=== PATIENT | male | born 1985 | race Caucasian/White ===

== ENCOUNTER 2018-01-18 09:07 | Day surgery (SDC) | payer OTHER, MEDICAID, SELFPAY ==
--- NOTE | 2018-01-18 | PATH_ITS ---
[facility] Accession Number: [id number] . 01 Material submitted: . PART A: GASTRITIS PART B: DUODENAL BIOPSY . 01 Clinical history: . RULE OUT H.PYLORI . 02 Diagnosis: A. Stomach, Biopsies: Helicobacter pyori gastritis confirmed by immunohistochemistry. Negative for intestinal metaplasia. Negative for dysplasia and malignancy. . B. Duodenum, Biopsies: Duodenal mucosa with no diagnostic abnormality. Negative for active inflammation, features of sprue, dysplasia, or malignancy. . BFI/01/20/2018 . 02 Electronically signed: . Tawanna Locke MD, Pathologist NPI- [id number] . 01 Gross description: . Received two formalin-filled containers, both labeled with the patient's name: . A. In a container labeled gastritis, the specimen consists of a 0.3 cm portion of tissue, entirely submitted in cassette A. B. In a container labeled duodenal, are two 0.1-0.2 cm portions of tissue, entirely submitted in cassette B. (DC:[id number]) /FRR . 02 Microscopic: . A. An immunohistochemical stain was performed to evaluate for Helicobacter organisms and is positive. The control stain showed appropriate reactivity. . * This test was developed and its performance characteristics determined by [facility]. It has not been cleared or approved by the U.S. Food and Drug Administration. The FDA has determined that such clearance or approval is not necessary. This test is used for clinical purposes. It should not be regarded as investigational or for research. . 02 Pathologist provided ICD-10: R10.9, B96.81 . 02 CPT . 492937, 673578, W42342 Performed at: 01 [facility] [address] [place] [address] [id number] MD Himanshu Rivera MD Phone: [phone] Performed at: [address] [id number] MD Jean Paul Lang MD Phone: [phone]
[2018-01-18 09:49] VITALS: BP 128/78; PULSE 59; RESP 16; TEMP 36.6; O2SAT 99; BMI 20.5
--- NOTE | 2018-01-18 10:13 | PM.HP.1 ---
History of Present Illness Date Patient Seen: 01/18/18 Time Patient Seen: 10:13 Chief complaint: EGD w/biopsy [id number] Patient History Family & Social History Social History: household members spouse Meds Allergies Allergy/AdvReac Type Severity Reaction Status Date / Time No Known Drug Allergies Allergy Verified 01/18/18 10:01 Exam Vital Signs (past 8 hours): - 01/18/18 09:49 Temperature 97.8 F Pulse Rate 59 L Respiratory Rate 16 Blood Pressure 128/78 H Pulse Oximetry 99 Oxygen Delivery Method Room Air Narrative Exam Narrative: Chest clear to auscultation percussion Cardiac exam reveals no S3 or murmur Oropharynx free of lesions Assessment & Plan Plan: Assessment/Plan Narrative: Severe nausea and vomiting and abdominal pain. Rule out peptic disease. Rule out GERD
[2018-01-18] MEDS: fentaNYL 250 MCG/5 ML INJ IV (10:21)
[2018-01-18] MEDS: MIDAZOLAM 5 MG/5 ML VIAL IV (10:21)
--- NOTE | 2018-01-18 10:32 | PM.OP.ENDO ---
Operative Date/Time/Diagnoses Date of procedure: 01/18/18 Time of procedure: 10:32 Pre-op diagnosis: See indication Post-op diagnosis: same (See finding) Procedure & Clinicians Study performed: EGD with biopsy Same procedure as scheduled: Yes Indications: Severe nausea vomiting abdominal pain Surgeon: Garett Ruth Procedure Notes Procedure in detail: After informed consent was obtained the patient was placed in the left lateral decubitus position. The video upper scope was placed into the oropharynx and with the patient's health called into the esophagus. The stomach, thus esophagus, and duodenum were carefully examined. On withdrawal retroflex view of the GE junction was performed. The scope was removed the patient tolerated procedure well Blood loss none Complications none Sedation Versed 8 mg fentanyl 200 mcg IV titration Total sedation time 14 min Findings 1. Distal esophagus showing mild erythematous and early erosive changes consistent with vomiting. No evidence of eosinophilic esophagitis 2. Patchy gastric erythema in the antrum. Biopsies taken to rule out Helicobacter 3. Some retained food in the stomach possibly consistent with mild gastric emptying delay 4. Normal duodenal bulb and sweep. Biopsies taken to rule out celiac disease Patient will still be need to be set up for colonoscopy with biopsy. Will await other studies as well and his return visit to the office.
[2018-01-18 10:39] VITALS: BP 96/58; PULSE 62; RESP 14; TEMP 36.2; O2SAT 92
[2018-01-18 10:42] VITALS: BP 97/57; PULSE 60; RESP 16; TEMP 36.2; O2SAT 93
[2018-01-18 10:47] VITALS: BP 107/70; PULSE 73; RESP 16; TEMP 36.1; O2SAT 98
[2018-01-18 10:50] VITALS: BP 112/76; PULSE 80; RESP 16; TEMP 36.4; O2SAT 98
== END 2018-01-18 11:10 | disposition home or self-care (01) ==
PROVIDERS: Visit Provider Internal Medicine Gastroenterology
PROC: 0DJ08ZZ Inspection of Upper Intestinal Tract, Via Natural or Artificial Opening Endoscopic (ICD-10-PCS; CPT 43235; principal; 2018-01-18 10:00)
DX: K29.70 Gastritis, unspecified, without bleeding (principal); B96.81 Helicobacter pylori [H. pylori] as the cause of diseases classified elsewhere
CPT/HCPCS: 43239; 88305; 88342; J2250; J3010

== ENCOUNTER 2018-02-08 13:06 | Day surgery (SDC) | payer OTHER, MEDICAID, SELFPAY ==
--- NOTE | 2018-02-08 | PATH_ITS ---
[facility] Accession Number: [id number] . 01 Material submitted: . PART A: TERMINAL ILEUM BIOPSY PART B: ASCENDING COLON POLYP PART C: RANDOM COLON BIOPSY . 02 Diagnosis: A. Terminal Ileum, Biopsy: Ileal mucosa with no diagnotic abnormality. Negative for active inflammation, granulomata, dysplasia or malignancy. . B. Ascending Colon Polyp: Tubular adenoma. . C. Random Colon, Biopsy: Colonic mucosa with no diagnostic abnormality. Negative for active or microscopic colitis. Negative for granulomata, dysplasia or malignancy. [facility]/02/09/2018 . 02 Electronically signed: . Elio King MD, PhD, Pathologist NPI- [id number] . 01 Gross description: . Received three formalin-filled containers, each labeled with the patient's name: . A. In a container labeled TI, are two 0.2-0.3 cm portions of tissue, entirely submitted in cassette A. B. In a container labeled ascending col. polyp, is one fragment of tissue which measures 0.3 cm. The specimen is entirely submitted in cassette B. C. In a container labeled random colon, are four less than 0.1 cm to 0.3 cm portions of tissue, entirely submitted in cassette C. (DC:[id number]) /FRR . 02 Pathologist provided ICD-10: D12.2, R19.4 . 02 CPT . 579146, 099710, 330823 Performed at: 01 [facility] [address] [place] [id number] MD Himanshu Rivera MD Phone: [phone] Performed at: 02 [facility] [address] [place] [id number] MD Jean Paul Lang MD Phone: [phone]
[2018-02-08 13:21] VITALS: BMI 19.9
[2018-02-08 13:35] VITALS: BP 125/72; PULSE 68; RESP 16; TEMP 37; O2SAT 100
[2018-02-08] MEDS: SODIUM CHLORIDE 0.9% 1,000 ML 200 ML IV (13:48)
--- NOTE | 2018-02-08 14:02 | PM.PREOP ---
Pre-operative Note Interval Note Pre-op Check: Yes History & Physical Reviewed by Physician and Yes Exam Performed Changes: Yes H&P completed within 30 days and has changed as indicated here:: Biopsies from upper endoscopy showed Helicobacter pylori. Unfortunately, only taken part of prescriptions so far ASA Class (for procedural sedation): II
--- NOTE | 2018-02-08 14:08 | PM.OP.ENDO ---
Operative Date/Time/Diagnoses Date of procedure: 02/08/18 Time of procedure: 14:08 Pre-op diagnosis: See indications Post-op diagnosis: same Procedure & Clinicians Study performed: Colonoscopy with biopsy Same procedure as scheduled: Yes Indications: Diarrhea and abdominal pain Surgeon: Garett Ruth Procedure Notes Procedure in detail: After informed consent was obtained patient was placed in the left lateral decubitus position. The video colonoscope was introduced the rectum slowly advanced to the cecum. The IC valve was identified and intubated. The scope was passed slowly 5 cm up the terminal ileum. On slow withdrawal the mucosa was carefully examined. Scope was removed. Patient tolerated procedure well. Blood loss none Complications none Sedation Fentanyl 100 mcg Versed 10 mg IV titration Total sedation time Findings 1. Normal terminal ileum. Biopsies taken. 2. Normal colonoscopy to cecum with normal mucosa. Random biopsies taken. 3. 4 mm polyp in the ascending colon cold biopsy removed completely. Patient will follow up with the biopsy results and make an appointment to see Dr. Valentin or myself in [place]. In the meantime, he began his treatment for his Helicobacter positive gastric biopsies last week but had to stop them over the weekend when he presented to the emergency room for more nausea and vomiting. I clarified is need to take amoxicillin and clarithromycin for a full 14 days along with omeprazole b.i.d. (or pantoprazole b.i.d.) for 14 days. To this and I have sent an another refill on his amoxicillin and clarithromycin to make sure he has enough to complete a full 14 days.
[2018-02-08] MEDS: MIDAZOLAM 5 MG/5 ML VIAL IV (14:19)
[2018-02-08] MEDS: fentaNYL 250 MCG/5 ML INJ IV (14:20)
[2018-02-08 14:34] VITALS: BP 117/77; PULSE 62; RESP 13; TEMP 36.1; O2SAT 98
[2018-02-08 14:39] VITALS: BP 109/60; PULSE 67; RESP 11; O2SAT 99
[2018-02-08 14:44] VITALS: BP 109/70; PULSE 64; RESP 10; TEMP 36.1; O2SAT 99
[2018-02-08 14:57] VITALS: BP 120/82; PULSE 60; RESP 12; TEMP 36.6; O2SAT 100
== END 2018-02-08 15:17 | disposition home or self-care (01) ==
PROVIDERS: Visit Provider Internal Medicine Gastroenterology
PROC: 0DJD8ZZ Inspection of Lower Intestinal Tract, Via Natural or Artificial Opening Endoscopic (ICD-10-PCS; CPT 45378; principal; 2018-02-08 14:00)
DX: D12.2 Benign neoplasm of ascending colon (principal); A04.8 Other specified bacterial intestinal infections; R11.2 Nausea with vomiting, unspecified; R19.7 Diarrhea, unspecified; F17.210 Nicotine dependence, cigarettes, uncomplicated
CPT/HCPCS: 45380; 88305; J2250; J3010

== ENCOUNTER 2018-10-11 22:11 | Emergency (ER) | payer OTHER, MEDICAID, SELFPAY ==
[2018-10-11 22:28] VITALS: BP 138/97; PULSE 120; RESP 16; TEMP 37.3; O2SAT 98; BMI 21.5
[2018-10-11 23:29] LABS: Blood Urea Nitrogen 58 mg/dL (9-20); Calcium 11.5 mg/dL (8.4-10.2); Carbon Dioxide 23 mmol/L (22-32); Chloride 97 mmol/L (98-107); Estimated Glomerular Filt Rate 38.4 mL/min (>60); Glucose 139 mg/dL (70-100); HEMOLYSIS 21 (0-50); Potassium 4.5 mmol/L (3.4-5.1); Sodium 136 mmol/L (137-145)
[2018-10-11] MEDS: SODIUM CHLORIDE 0.9% 1,000 ML 1000 ML IV (23:30)
--- NOTE | 2018-10-11 23:34 | ED_ITS ---
HPI - Back Pain/Injury General Chief Complaint: Back Pain/Injury Stated Complaint: Dehydrated X4 Days, Back Pain Time Seen by Provider: 10/11/18 23:34 Source: patient Mode of arrival: ambulatory Limitations: no limitations History of Present Illness HPI Narrative: 33-year-old male here for evaluation of what he thinks is dehydration. He states that on Tuesday of this week he had a couple episodes of vomiting and a couple episodes of diarrhea. Has not had anything since then. He states he thinks he has been drinking however he states that he mostly drinks soda not water. He does work outside. States he has had a history of H pylori in the past and 1 of the reasons why he is not drinking more fluids because he feels ?bloated? when he drinks. States that he has had very little urine output over the past couple days. No bowel changes. Related Data Home Medications Medication Instructions Recorded Confirmed amoxicillin 1,000 mg PO BID 02/08/18 02/08/18 clarithromycin 1 tab PO BID 02/08/18 02/08/18 famotidine 20 mg PO DAILY 02/08/18 02/08/18 omeprazole 20 mg PO DAILY 02/08/18 02/08/18 ondansetron 4 mg PO Q6H PRN 02/08/18 02/08/18 sucralfate 1 g PO QID 02/08/18 02/08/18 Allergies Allergy/AdvReac Type Severity Reaction Status Date / Time No Known Drug Allergies Allergy Verified 10/11/18 22:28 Review of Systems Constitutional Denies fever(s) and Denies headache(s) ENT Ears, Nose, Mouth, and Throat: Denies headache(s) Cardiovascular Denies chest pain and Denies dyspnea Respiratory Denies dyspnea Gastrointestinal Gastrointestinal: Denies abdominal pain and Reports bloating Genitourinary Comments: Little urine output Integumentary/Breasts Denies rash Neurologic Denies headache(s) Hematologic/Lymphatic Denies easy bleeding and Denies easy bruising [facility] Medical History H. pylori infection (Acute) Social History household members: spouse Smoking Status: Current every day smoker Social History household members: spouse Smoking Status: Current every day smoker Exam Initial Vital Signs Initial Vital Signs: Vital Signs Temperature 99.1 F 10/11/18 22:28 Pulse Rate 120 H 10/11/18 22:28 Respiratory Rate 16 10/11/18 22:28 Blood Pressure 138/97 H 10/11/18 22:28 Pulse Oximetry 98 10/11/18 22:28 Const General: cooperative, well developed, well groomed and No acute distress Orientation: alert, awake and oriented x3 HENMT Head: normal to inspection and normocephalic Resp Effort & Inspection: normal respiratory effort Auscultation: clear to auscultation bilaterally Cardio Rate: tachycardic Rhythm: regular rhythm Pulses: radial pulses present GI Inspection: non-distended Palpation: soft, No firm and No tender Skin Lesions: no lesions Rashes: no rashes Other: Dry skin Neuro General: alert, awake and oriented x3 Extrem General: normal to inspection and capillary refill normal Psych Appearance: grossly normal and well kempt Course Orders Ordered: ED Orders 10/11/18 22:59 Basic Metabolic Panel Stat Complete Blood Count AUTO DIFF Stat 10/12/18 02:19 Urine Microscopic Stat 10/12/18 02:53 Basic Metabolic Panel Stat Complete Blood Count AUTO DIFF Stat Discontinued Medications Al Hydrox/Mg Hydrox/Simethicone 20 ml/ Lidocaine HCl 15 ml 0 ml PO NOW ONE Stop: 10/12/18 02:04 Last Admin: 10/12/18 02:03 Dose: 45 ml Sodium Chloride (Normal Saline 0.9%) 1,000 mls @ 1,000 mls/hr IV BOLUS ONE Stop: 10/12/18 00:16 Last Infusion: 10/12/18 00:27 Dose: 0 mls/hr Admin: 10/11/18 23:30 Dose: 1,000 mls/hr Sodium Chloride (Normal Saline 0.9%) 1,000 mls @ 1,000 mls/hr IV BOLUS ONE Stop: 10/12/18 00:55 Last Infusion: 10/12/18 01:20 Dose: 0 mls/hr Admin: 10/12/18 00:27 Dose: 1,000 mls/hr Lactated Ringer's (Lactated Ringers) 1,000 mls @ 1,000 mls/hr IV BOLUS ONE Stop: 10/12/18 02:55 Last Infusion: 10/12/18 03:01 Dose: 0 mls/hr Admin: 10/12/18 01:59 Dose: 1,000 mls/hr Vital Signs - 8 hr 10/11/18 22:28 10/12/18 00:28 10/12/18 02:12 Temperature 99.1 F Pulse Rate 120 H 70 80 Respiratory Rate 16 16 16 Blood Pressure 138/97 H Blood Pressure [Right Arm] 130/88 148/83 H Pulse Oximetry 98 99 98 MDM - Back Pain/Injury Lab Data Attestation: I reviewed the patient's lab results. Result diagrams: 10/12/18 02:53 10/12/18 02:53 Lab Results 10/11/18 10/11/18 10/12/18 Range/Units 22:59 22:59 02:19 WBC 28.5 H (4.5-11.0) X10^3/uL RBC 6.74 H (4.5-5.9) X10^6/uL Hgb 20.1 H (13.5-17.5) g/dL Hct 59.5 H (41-53) % MCV 88.3 (80-100) fL MCH 29.8 (26-34) PG MCHC 33.8 (30-36) % RDW 12.7 (11.6-14.8) % Plt Count 319 (150-400) X10^3/uL Neut % (Auto) 83.7 H (50-75) % Lymph % (Auto) 8.4 L (25-40) % Perkins % (Auto) 7.6 (3-14) % Eos % (Auto) 0.1 L (2-4) % Baso % (Auto) 0.2 (0-2) % Neut # (Auto) 95438 H (9256-7172) /uL Lymph # (Auto) 2400 (0628-1317) /uL Perkins # (Auto) 2200 H (0-900) /uL Eos # (Auto) 0 (0-450) /uL Baso # (Auto) 100 (0-100) /uL Sodium 136 L (137-145) mmol/L Potassium 4.5 (3.4-5.1) mmol/L Chloride 97 L (98-107) mmol/L Carbon Dioxide 23 (22-32) mmol/L BUN 58 H (9-20) mg/dL Creatinine 2.00 H (0.66-1.25) mg/dL Estimated GFR 38.4 L (>60) mL/min BUN/Creatinine Ratio 29.0 H (6-22) Glucose 139 H (70-100) mg/dL Calcium 11.5 H (8.4-10.2) mg/dL Urine RBC None seen (0-5/HPF) Urine WBC None seen (0-5/HPF) Urine Bacteria None seen (None) Ur Culture Indicated? Cult not indicated Micro UA Comment Microscopic normal 10/12/18 10/12/18 Range/Units 02:53 02:53 WBC 20.4 H (4.5-11.0) X10^3/uL RBC 5.33 (4.5-5.9) X10^6/uL Hgb 16.0 (13.5-17.5) g/dL Hct 47.0 (41-53) % MCV 88.2 (80-100) fL MCH 30.0 (26-34) PG MCHC 34.0 (30-36) % RDW 12.4 (11.6-14.8) % Plt Count 222 (150-400) X10^3/uL Neut % (Auto) 79.4 H (50-75) % Lymph % (Auto) 12.4 L (25-40) % Perkins % (Auto) 7.7 (3-14) % Eos % (Auto) 0.1 L (2-4) % Baso % (Auto) 0.4 (0-2) % Neut # (Auto) 44977 H (6440-1335) /uL Lymph # (Auto) 2500 (8548-3112) /uL Perkins # (Auto) 1600 H (0-900) /uL Eos # (Auto) 0 (0-450) /uL Baso # (Auto) 100 (0-100) /uL Sodium 136 L (137-145) mmol/L Potassium 4.5 (3.4-5.1) mmol/L Chloride 100 (98-107) mmol/L Carbon Dioxide 30 (22-32) mmol/L BUN 48 H (9-20) mg/dL Creatinine 1.50 H (0.66-1.25) mg/dL Estimated GFR 53.6 L (>60) mL/min BUN/Creatinine Ratio 32.0 H (6-22) Glucose 113 H (70-100) mg/dL Calcium 9.0 (8.4-10.2) mg/dL Urine RBC (0-5/HPF) Urine WBC (0-5/HPF) Urine Bacteria (None) Ur Culture Indicated? Micro UA Comment Urine Dip Bedside Urine Glucose Negative Bedside Urine Bilirubin - Negative Bedside Urine Ketone - Negative Urine Specific [place] 1.025 Bedside Urine Occult Blood - Negative Bedside Urine pH 6.0 Bedside Urine Protein +/- 15 Bedside Urine Urobilinogen +/- 1mg Bedside Urine Nitrite - Negative Bedside Urine Leukocytes - Negative Esterase MDM Narrative Medical decision making narrative: Upon arrival patient was tachycardic. Has dry skin. Has dry mucous membranes. His CBC and chemistry a show hemoconcent ration shown by a leukocytosis and an elevated H&H. He also has an elevated creatinine and a low GFR. He was given 2 L of normal saline and was also drinking oral fluids. A bladder scan at this time showed approximately 40 cc of urine. He was the then given 1/3 L of lactated Ringer's. He was able to urinate which shows no signs of infection. Repeat labs show an improvement of all of the abnormalities to include a white blood cell count and also the creatinine. I have low suspicion for infection. I do suspect that the leukocytosis is secondary to the hemoconcentration and also the elevated creatinine is secondary to this as well. Had a long discussion with the patient regarding his symptoms. I do feel that he is not drinking as much as what he thinks he is drinking especially with working outside. Informed him that he needed to increase his fluid intake and to contact his primary doctor for follow-up. He expressed understanding and agreement with this plan. Discharge Plan Departure Patient Disposition: Home Clinical Impression: Acute dehydration, Acute kidney injury Instructions: DI for Dehydration -- Adult Activity Restrictions/Additional Instructions: Your level of dehydration today did cause a change in your laboratory values that we use to monitor your kidneys. You do need to increase your fluid intake. The laboratory values did improve with fluids however you do need to follow-up with your primary doctor to make sure they continue to improve to normal. Return to the emergency department for any new or worsening symptoms Prescriptions: No Action famotidine 20 mg PO DAILY RF: 0 omeprazole 20 mg PO DAILY RF: 0 ondansetron 4 mg PO Q6H PRN (Reason: Nausea) RF: 0 sucralfate 1 g PO QID RF: 0 amoxicillin 1,000 mg PO BID RF: 0 clarithromycin 1 tab PO BID RF: 0
[2018-10-11 23:37] LABS: Add Manual Diff / Slide Review NO; Basophils Absolute Auto 100 /uL (0-100); Basophils Percent Auto 0.2 % (0-2); Eosinophils Absolute Auto 0 /uL (0-450); Eosinophils Percent Auto 0.1 % (2-4); Hematocrit 59.5 % (41-53); Hemoglobin 20.1 g/dL (13.5-17.5); Lymphocytes Absolute Auto 2400 /uL (1100-4500); Lymphocytes Percent Auto 8.4 % (25-40); Mean Corpuscular HGB Conc 33.8 % (30-36); Mean Corpuscular Hemoglobin 29.8 PG (26-34); Mean Corpuscular Volume 88.3 fL (80-100); Monocytes Absolute Auto 2200 /uL (0-900); Monocytes Percent Auto 7.6 % (3-14); Neutrophils Absolute Auto 23900 /uL (1500-7000); Neutrophils Percent Auto 83.7 % (50-75); Platelet Count 319 X10^3/uL (150-400); Red Blood Cell Count 6.74 X10^6/uL (4.5-5.9); Red Cell Distribution Width 12.7 % (11.6-14.8); White Blood Cell Count 28.5 X10^3/uL (4.5-11.0)
[2018-10-12] MEDS: SODIUM CHLORIDE 0.9% 1,000 ML 1000 ML IV (00:27)
[2018-10-12 00:28] VITALS: BP 130/88; PULSE 70; RESP 16; O2SAT 99
[2018-10-12] MEDS: LACTATED RINGERS 1,000 ML 1000 ML IV (01:59)
[2018-10-12] MEDS: MAG HYDROX/ALUMINUM/SIMETH SUS 20 ML, LIDOCAINE VISCOUS 2% 15 ML PO (02:03)
[2018-10-12 02:12] VITALS: BP 148/83; PULSE 80; RESP 16; O2SAT 98
--- NOTE | 2018-10-12 02:33 | PC.NURSE ---
patient also complains of a decrease in urine output and that his urine is dark in color.
[2018-10-12 02:42] LABS: Bacteria Urine None Seen; RBC Urine None Seen (0-5/HPF); WBC Urine None Seen (0-5/HPF)
[2018-10-12 02:54] LABS: Culture Indicated Urine Cult Not Indicated; Urine Comments Microscopic Normal
[2018-10-12 03:02] LABS: Add Manual Diff / Slide Review NO; Basophils Absolute Auto 100 /uL (0-100); Basophils Percent Auto 0.4 % (0-2); Eosinophils Absolute Auto 0 /uL (0-450); Eosinophils Percent Auto 0.1 % (2-4); Lymphocytes Absolute Auto 2500 /uL (1100-4500); Lymphocytes Percent Auto 12.4 % (25-40); Mean Corpuscular Volume 88.2 fL (80-100); Monocytes Absolute Auto 1600 /uL (0-900); Monocytes Percent Auto 7.7 % (3-14); Neutrophils Absolute Auto 16200 /uL (1500-7000); Neutrophils Percent Auto 79.4 % (50-75); Platelet Count 222 X10^3/uL (150-400); Red Blood Cell Count 5.33 X10^6/uL (4.5-5.9); Red Cell Distribution Width 12.4 % (11.6-14.8); White Blood Cell Count 20.4 X10^3/uL (4.5-11.0)
[2018-10-12 03:10] LABS: Blood Urea Nitrogen 48 mg/dL (9-20); Carbon Dioxide 30 mmol/L (22-32); Chloride 100 mmol/L (98-107); Estimated Glomerular Filt Rate 53.6 mL/min (>60); Glucose 113 mg/dL (70-100); HEMOLYSIS < 15 (0-50); Potassium 4.5 mmol/L (3.4-5.1); Sodium 136 mmol/L (137-145)
[2018-10-12 03:28] VITALS: BP 144/80; PULSE 73; RESP 16; TEMP 37.3; O2SAT 99
== END 2018-10-12 03:31 | disposition home or self-care (01) ==
PROVIDERS: Emergency Provider Emergency Medicine
DX: E86.0 Dehydration (principal); N17.9 Acute kidney failure, unspecified
CPT/HCPCS: 36415; 36591; 51798; 80048; 81003; 81015; 85025; 96360; 96361; 99283; 99284

== ENCOUNTER 2019-02-21 14:18 | Emergency (ER) | payer OTHER, MEDICAID, SELFPAY ==
[2019-02-21] VITALS (8 sets, daily range): BP systolic 108–142; BP diastolic 54–91; PULSE 60–94; RESP 12–17; TEMP 36.1–37.3; O2SAT 97–100; BMI 20.7
[2019-02-21] MEDS: ONDANSETRON 4 MG/2 ML INJ IV ×2 (14:43→17:18)
[2019-02-21 14:54] LABS: INR 1.1 (0.9-1.3); Prothrombin Time 12.3 SECONDS (10.1-12.7)
[2019-02-21 14:57] LABS: Add Manual Diff / Slide Review NO; Basophils Absolute Auto 100 /uL (0-100); Basophils Percent Auto 0.4 % (0-2); Eosinophils Absolute Auto 0 /uL (0-450); Eosinophils Percent Auto 0.2 % (2-4); Hematocrit 59.1 % (41-53); Hemoglobin 20.5 g/dL (13.5-17.5); Lymphocytes Absolute Auto 1600 /uL (1100-4500); Lymphocytes Percent Auto 10.7 % (25-40); Mean Corpuscular HGB Conc 34.7 % (30-36); Mean Corpuscular Hemoglobin 30.6 PG (26-34); Mean Corpuscular Volume 88.2 fL (80-100); Monocytes Absolute Auto 500 /uL (0-900); Monocytes Percent Auto 3.4 % (3-14); Neutrophils Absolute Auto 12600 /uL (1500-7000); Neutrophils Percent Auto 85.3 % (50-75); PTT Partial Thromboplastin Tim 33 SECONDS (26.4-36.2); Platelet Count 331 X10^3/uL (150-400); Red Blood Cell Count 6.69 X10^6/uL (4.5-5.9); Red Cell Distribution Width 12.4 % (11.6-14.8); White Blood Cell Count 14.8 X10^3/uL (4.5-11.0)
[2019-02-21 14:58] LABS: Alanine Aminotransferase 20 IU/L (21-72); Albumin 5.5 g/dL (3.5-5.0); Albumin Globulin Ratio 1.5 (1.0-2.8); Alkaline Phosphatase 114 U/L (38-126); Aspartate Aminotransferase 24 IU/L (17-59); BUN Creatinine Ratio 29.2 (6-22); Blood Urea Nitrogen 38 mg/dL (9-20); Calcium 10.2 mg/dL (8.4-10.2); Carbon Dioxide 25 mmol/L (22-32); Chloride 99 mmol/L (98-107); Estimated Glomerular Filt Rate > 60.0 mL/min (>60); Globulin 3.6 g/dL (1.7-4.1); Glucose 162 mg/dL (70-100); HEMOLYSIS 41 (0-50); Lipase 43 U/L (23-300); Potassium 4.6 mmol/L (3.4-5.1); Sodium 141 mmol/L (137-145); Total Protein 9.1 g/dL (6.3-8.2)
[2019-02-21] MEDS: PANTOPRAZOLE 40 MG VIAL IV (17:18)
[2019-02-21] MEDS: SODIUM CHLORIDE 0.9% 1,000 ML 1000 ML IV (17:18)
--- NOTE | 2019-02-21 17:36 | DI.CT.S_ITS ---
PROCEDURE: CT ABDOMEN PELVIS W CON INDICATIONS: abd pain/ nausea vomiting TECHNIQUE: After the administration of intravenous contrast, 5 mm thick sections acquired from the diaphragm to the symphysis. 5 mm coronal and sagittal reformats were acquired. For radiation dose reduction, the following was used: automated exposure control, adjustment of mA and/or kV according to patient size. COMPARISON: None. FINDINGS: Image quality: Excellent. ABDOMEN: Lung bases: Lung bases are clear. Heart size is normal. Solid organs: Liver is normal in size and enhancement. Gallbladder unremarkable. Biliary system is non dilated. Pancreas enhances normally. Spleen is normal in size and enhancement. No adrenal nodules. Kidneys demonstrate normal size and enhancement, without hydronephrosis. Peritoneum and bowel: There is distention of the stomach. There is diffuse long segment mural thickening involving the ascending transverse and descending colon as well as sigmoid colon. Incidentally noted simple cystic-appearing lesion involving small bowel loop on image 60 series 2. Appendix appears normal No evidence of bowel obstruction. No free fluid or air. Nodes and vessels: No retroperitoneal or mesenteric adenopathy by size criteria. Aorta and inferior vena cava are normal in size. Miscellaneous: No ventral hernias. PELVIS: Genitourinary: Bladder wall thickness is normal. Miscellaneous: No inguinal hernias or adenopathy. Bones: No suspicious bony lesions. No vertebral body compression fractures. IMPRESSION: Diffuse colonic mural thickening suggesting infectious or inflammatory pancolitis. Incidentally noted cystic lesion involving the small bowel, presumably enteric/duplication cyst, mucocele among other possibilities, technically non-specific. Dictated by: Timo Krishnamurthy M.D. on 02/21/2019 at 19:13 Approved by: Timo Krishnamurthy M.D. on 02/21/2019 at 19:17
--- NOTE | 2019-02-21 18:06 | ED.ABDPAIN ---
HPI - Abdominal Pain General Chief Complaint: Abdominal Pain Stated Complaint: nausea/vomiting/weight loss x3 days Time Seen by Provider: 02/21/19 17:41 Source: patient Mode of arrival: Wheelchair Limitations: no limitations History of Present Illness HPI narrative: The patient presents with nausea, vomiting diarrhea. He has had symptoms over the past 3 days. He has actually had intermittent symptoms over recent months. He was seen here September 2018 with similar symptoms. He was noted to be hemoconcentrated with an elevated of WBC. He was treated for dehydration. He had an elevated creatinine at that point. He was previously treated for H pylori his primary care doctor. He has been retested, and is H. pylori negative. Stool cultures are reportedly normal. He is physical job. He drinks fluids, not was the will water. He does smoke tobacco. He has no current abdominal pain with the other GI symptoms. He has no hematemesis. He has had no history of GI bleeding. He smokes a small amount of my marijuana intermittently. The GI symptoms have been intermittent, but ongoing over recent months. He has no abdominal pain. He currently has chills but no fever. He has had no travel or recent dietary changes that he thinks could be contributing to his current symptoms. He has no urinary symptoms. 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 He has undergone colonoscopy, he has no details of the study. There was no obvious pathology. The colonoscopy was about 1 year ago. Related Data Previous Rx's Medication Instructions Recorded ciprofloxacin HCl 500 mg PO BID #20 tab 02/21/19 metoclopramide HCl [Reglan] 10 mg PO Q6H PRN #30 tab 02/21/19 metronidazole [Flagyl] 500 mg PO BID 10 Days #20 tab 02/21/19 Allergies Allergy/AdvReac Type Severity Reaction Status Date / Time No Known Drug Allergies Allergy Verified 02/21/19 14:32 Review of Systems Review of Systems ROS Unobtainable: All systems reviewed & are unremarkable except as noted in HPI and below Constitutional Constitutional: Reports chills, Denies fever(s), Denies lethargy and Denies weakness ENT Ears, Nose, Mouth, and Throat: Reports neck pain and Denies sore throat Cardiovascular Cardiovascular: Denies chest pain, Denies irregular heart rhythm, Denies lightheadedness, Denies palpitations, Denies dyspnea, Denies dyspnea on exertion and Denies orthopnea Respiratory Respiratory: Denies cough, Denies dyspnea, Denies dyspnea on exertion and Denies wheezing Gastrointestinal Gastrointestinal: Denies abdominal pain, Reports change in bowel habits, Reports diarrhea, Reports nausea and Reports vomiting Genitourinary Genitourinary: Denies hematuria, Denies dysuria, Denies flank pain and Denies urinary urgency Musculoskeletal Musculoskeletal: Denies back pain and Reports neck pain Integumentary/Breasts Skin/Breast: Denies pruritus, Denies erythema, Denies rash and Denies wounds Neurologic Neurologic: Denies confusion and Denies weakness Psychiatric Psychiatric: Denies anxiety, Denies confusion and Denies depression Endocrine Endocrine: Denies palpitations Allergic/Immunologic Allergic/Immunologic: Denies wheezing ON LICENSE OF [facility] Medical History (Updated 02/21/19 @ 20:43 by Jordan Villagomez MD) H. pylori infection (Acute) Vomiting (Acute) Surgical History (Updated 02/21/19 @ 20:41 by Jordan Villagomez MD) H/O colonoscopy (Acute) Social History household members: spouse Smoking Status: Current every day smoker Social History household members: spouse Smoking Status: Current every day smoker Exam Initial Vital Signs Initial Vital Signs: Vital Signs Temperature 97.0 F L 02/21/19 14:24 Pulse Rate 82 02/21/19 14:24 Respiratory Rate 16 02/21/19 14:24 Blood Pressure 120/91 H 02/21/19 14:24 Pulse Oximetry 99 02/21/19 14:24 Const General: cooperative and well developed Nutritional Appearance: well nourished Orientation: alert, awake, oriented x3 and not confused [facility] Head: normal to inspection, normocephalic and atraumatic Mouth: oral mucosae normal Throat: posterior oropharynx normal and tonsils normal Eyes General: appearance normal, both eyes and all related structures Eyelids: eyelids normal Conjunctivae: conjunctivae normal Sclera: sclerae normal Pupils: PERRL EOM: EOM intact bilaterally Neck Neck: normal visual inspection, no meningeal signs, trachea midline and lymphadenopathy Resp Effort & Inspection: normal respiratory effort, able to speak in complete sentences, no respiratory distress and no use of accessory muscles Auscultation: clear to auscultation bilaterally, no rales, no rhonchi and no wheezes Cardio Rate: regular rate Rhythm: regular rhythm Heart Sounds: S1 normal, S2 normal, no click, no gallops, no murmurs and no rubs Pulses: normal peripheral pulses GI Inspection: non-distended Palpation: soft, no hepatosplenomegaly, No guarding, No pulsatile mass and No tender Auscultation: normal bowel sounds Back/Spine/Pelvis Back: No CVA tenderness Skin General: no rashes or lesions noted and No petechiae Neuro General: alert, oriented x3, gait normal and no focal motor deficits Speech: speech normal Course Course Course Narrative: Colitis was noted on the CT. He has chills, no fever. He has had vomiting and diarrhea. He was started on Levaquin and Flagyl tonight, then discharged on Cipro and Flagyl. I suggested he talk to his primary care doctor about referral back to the stoneworking sander. The stoneworking sander may consider repeat colonoscopy. Orders Ordered: ED Orders 02/21/19 14:44 Complete Blood Count AUTO DIFF Stat Comprehensive Metabolic Panel Stat Lipase Stat Partial Thromboplastin Time Stat Prothrombin Time INR Stat 02/21/19 17:36 CT abdomen pelvis w con Stat 02/21/19 20:08 Gastric Occult with pH Stat Sodium Chloride (Normal Saline 0.9%) 1,000 mls @ 250 mls/hr IV CONT PERCY Last Admin: 02/21/19 19:32 Dose: 250 mls/hr Documented by: PHONG Discontinued Medications Diphenhydramine HCl (Benadryl) 25 mg IV NOW ONE Stop: 02/21/19 18:47 Last Admin: 02/21/19 19:31 Dose: 25 mg Documented by: PHONG Sodium Chloride (Normal Saline 0.9%) 1,000 mls @ 1,000 mls/hr IV BOLUS ONE Stop: 02/21/19 18:10 Last Infusion: 02/21/19 18:42 Dose: 0 mls/hr Documented by: Admin: 02/21/19 17:18 Dose: 1,000 mls/hr Documented by: CARLOS MANUEL Ampicillin Sodium/Sulbactam (Sodium 3 gm/ Sodium Chloride) 100 mls @ 100 mls/hr IV NOW ONE Stop: 02/21/19 20:33 Last Admin: 02/21/19 21:04 Dose: Not Given Documented by: PHONG Levofloxacin (Levaquin) 500 mg in 100 mls @ 100 mls/hr IV NOW ONE Stop: 02/21/19 21:43 Last Admin: 02/21/19 21:24 Dose: 100 mls/hr Documented by: PHONG Metoclopramide HCl (Reglan) 10 mg IV NOW ONE Stop: 02/21/19 18:47 Last Admin: 02/21/19 19:32 Dose: 10 mg Documented by: PHONG Metronidazole (Metronidazole) 500 mg PO NOW ONE Stop: 02/21/19 20:45 Last Admin: 02/21/19 21:24 Dose: 500 mg Documented by: PHONG Ondansetron HCl (Zofran) 4 mg IV NOW ONE Stop: 02/21/19 14:33 Last Admin: 02/21/19 14:43 Dose: 4 mg Documented by: MICHELE Ondansetron HCl (Zofran) 4 mg IV NOW ONE Stop: 02/21/19 17:06 Last Admin: 02/21/19 17:18 Dose: 4 mg Documented by: CARLOS MANUEL Ondansetron HCl (Zofran) 4 mg IV NOW ONE Stop: 02/21/19 17:43 Last Admin: 02/21/19 17:56 Dose: Not Given Documented by: JOSH Pantoprazole Sodium (Protonix) 40 mg IV NOW ONE Stop: 02/21/19 17:07 Last Admin: 02/21/19 17:18 Dose: 40 mg Documented by: CARLOS MANUEL Vital Signs Vital signs: Vital Signs - 8 hr 02/21/19 14:24 02/21/19 17:00 02/21/19 17:09 Temperature 97.0 F L Pulse Rate 82 60 72 Respiratory Rate 16 17 12 Blood Pressure 120/91 H Blood Pressure [Left Arm] 142/81 H 142/81 H Pulse Oximetry 99 100 100 02/21/19 17:32 02/21/19 19:47 02/21/19 20:05 Temperature 97.8 F Pulse Rate 64 66 Respiratory Rate 17 17 Blood Pressure Blood Pressure [Left Arm] 108/54 L 117/60 Pulse Oximetry 100 98 02/21/19 21:00 Temperature Pulse Rate 63 Respiratory Rate 17 Blood Pressure Blood Pressure [Left Arm] 136/67 Pulse Oximetry 98 MDM - Abdominal Pain Lab Data Result diagrams: 02/21/19 14:44 02/21/19 14:44 Labs: Lab Results 02/21/19 02/21/19 02/21/19 Range/Units 14:44 14:44 14:44 WBC 14.8 H (4.5-11.0) X10^3/uL RBC 6.69 H (4.5-5.9) X10^6/uL Hgb 20.5 H (13.5-17.5) g/dL Hct 59.1 H (41-53) % MCV 88.2 (80-100) fL MCH 30.6 (26-34) PG MCHC 34.7 (30-36) % RDW 12.4 (11.6-14.8) % Plt Count 331 (150-400) X10^3/uL Neut % (Auto) 85.3 H (50-75) % Lymph % (Auto) 10.7 L (25-40) % Cochran % (Auto) 3.4 (3-14) % Eos % (Auto) 0.2 L (2-4) % Baso % (Auto) 0.4 (0-2) % Neut # (Auto) 23586 H (9806-0815) /uL Lymph # (Auto) 1600 (1052-0541) /uL Cochran # (Auto) 500 (0-900) /uL Eos # (Auto) 0 (0-450) /uL Baso # (Auto) 100 (0-100) /uL PT 12.3 (10.1-12.7) SECONDS INR 1.1 (0.9-1.3) APTT 33 (26.4-36.2) SECONDS Sodium 141 (137-145) mmol/L Potassium 4.6 (3.4-5.1) mmol/L Chloride 99 (98-107) mmol/L Carbon Dioxide 25 (22-32) mmol/L BUN 38 H (9-20) mg/dL Creatinine 1.30 H (0.66-1.25) mg/dL Estimated GFR > 60.0 (>60) mL/min BUN/Creatinine Ratio 29.2 H (6-22) Glucose 162 H (70-100) mg/dL Calcium 10.2 (8.4-10.2) mg/dL Total Bilirubin 3.0 H (0.2-1.3) mg/dL AST 24 (17-59) IU/L ALT 20 L (21-72) IU/L Alkaline Phosphatase 114 (38-126) U/L Total Protein 9.1 H (6.3-8.2) g/dL Albumin 5.5 H (3.5-5.0) g/dL Globulin 3.6 (1.7-4.1) g/dL Albumin/Globulin Ratio 1.5 (1.0-2.8) Lipase 43 (23-300) U/L Gastric Fluid pH (1-2) pH Gastric Occult Blood (NEGATIVE) 02/21/19 Range/Units 20:08 WBC (4.5-11.0) X10^3/uL RBC (4.5-5.9) X10^6/uL Hgb (13.5-17.5) g/dL Hct (41-53) % MCV (80-100) fL MCH (26-34) PG MCHC (30-36) % RDW (11.6-14.8) % Plt Count (150-400) X10^3/uL Neut % (Auto) (50-75) % Lymph % (Auto) (25-40) % Cochran % (Auto) (3-14) % Eos % (Auto) (2-4) % Baso % (Auto) (0-2) % Neut # (Auto) (2208-7359) /uL Lymph # (Auto) (5653-2921) /uL Cochran # (Auto) (0-900) /uL Eos # (Auto) (0-450) /uL Baso # (Auto) (0-100) /uL PT (10.1-12.7) SECONDS INR (0.9-1.3) APTT (26.4-36.2) SECONDS Sodium (137-145) mmol/L Potassium (3.4-5.1) mmol/L Chloride (98-107) mmol/L Carbon Dioxide (22-32) mmol/L BUN (9-20) mg/dL Creatinine (0.66-1.25) mg/dL Estimated GFR (>60) mL/min BUN/Creatinine Ratio (6-22) Glucose (70-100) mg/dL Calcium (8.4-10.2) mg/dL Total Bilirubin (0.2-1.3) mg/dL AST (17-59) IU/L ALT (21-72) IU/L Alkaline Phosphatase (38-126) U/L Total Protein (6.3-8.2) g/dL Albumin (3.5-5.0) g/dL Globulin (1.7-4.1) g/dL Albumin/Globulin Ratio (1.0-2.8) Lipase (23-300) U/L Gastric Fluid pH 2 (1-2) pH Gastric Occult Blood Positive H (NEGATIVE) Point of care testing: Urine Dip Bedside Urine Glucose Negative Bedside Urine Bilirubin - Negative Bedside Urine Ketone - Negative Urine Specific [place] 1.010 Bedside Urine Occult Blood - Negative Bedside Urine pH 5.5 Bedside Urine Protein +/- 15 Bedside Urine Urobilinogen - Negative Bedside Urine Nitrite - Negative Bedside Urine Leukocytes - Negative Esterase Imaging Data CT scan - abdomen: Radiologist's impression: 59 Jordan Villagomez MD Find Patient Imaging - Landen Jorge 33 M 1985 ACTIVITY DATE EXAM STATUS AUTHOR 02/21/19 17:36 [place] [address] CT Scan Report Signed Patient: Landen Jorge SMR#: [id number] : 1985Acct:[id number] Age/Sex: 33 / MDate of Service: 02/21/19 Loc: ED Accession Number: [id number] Procedure: CT abdomen pelvis w con Ordering Provider: Kayleigh Huff D.O. PROCEDURE: CT ABDOMEN PELVIS W CON INDICATIONS: abd pain/ nausea vomiting TECHNIQUE: After the administration of intravenous contrast, 5 mm thick sections acquired from the diaphragm to the symphysis. 5 mm coronal and sagittal reformats were acquired. For radiation dose reduction, the following was used: automated exposure control, adjustment of mA and/or kV according to patient size. COMPARISON: None. FINDINGS: Image quality: Excellent. ABDOMEN: Lung bases: Lung bases are clear. Heart size is normal. Solid organs: Liver is normal in size and enhancement. Gallbladder unremarkable. Biliary system is non dilated. Pancreas enhances normally. Spleen is normal in size and enhancement. No adrenal nodules. Kidneys demonstrate normal size and enhancement, without hydronephrosis. Peritoneum and bowel: There is distention of the stomach. There is diffuse long segment mural thickening involving the ascending transverse and descending colon as well as sigmoid colon. Incidentally noted simple cystic-appearing lesion involving small bowel loop on image 60 series 2. Appendix appears normal No evidence of bowel obstruction. No free fluid or air. Nodes and vessels: No retroperitoneal or mesenteric adenopathy by size criteria. Aorta and inferior vena cava are normal in size. Miscellaneous: No ventral hernias. PELVIS: Genitourinary: Bladder wall thickness is normal. Miscellaneous: No inguinal hernias or adenopathy. Bones: No suspicious bony lesions. No vertebral body compression fractures. IMPRESSION: Diffuse colonic mural thickening suggesting infectious or inflammatory pancolitis. Incidentally noted cystic lesion involving the small bowel, presumably enteric/duplication cyst, mucocele among other possibilities, technically non-specific. Discharge Plan Departure Patient Disposition: Home Clinical Impression: Colitis Instructions: DI for Colitis Activity Restrictions/Additional Instructions: Cipro 500 mg 2 times daily. Flagyl 5 mg 2 times daily. Reglan every 6 hours as needed for nausea. Follow-up with your primary care doctor. I would recommend a follow-up appointment with your stoneworking sander. Return to the ER as needed. Prescriptions: New ciprofloxacin HCl 500 mg tablet 500 mg PO BID Qty: 20 RF: 0 metoclopramide HCl [Reglan] 10 mg tablet 10 mg PO Q6H PRN (Reason: nausea and vomiting) Qty: 30 RF: 0 metronidazole [Flagyl] 500 mg tablet 500 mg PO BID 10 Days Qty: 20 RF: 0 Referrals: Eric Ba [Primary Care Provider] -
[2019-02-21] MEDS: diphenhydrAMINE 50 MG/ML VIAL 25 MG IV (19:31)
[2019-02-21] MEDS: METOCLOPRAMIDE 10 MG/2 ML INJ IV (19:32)
[2019-02-21] MEDS: SODIUM CHLORIDE 0.9% 1,000 ML 250 ML IV (19:32)
[2019-02-21 20:15] LABS: Occult Blood Gastric Fluid POSITIVE (NEGATIVE); PH Gastric Fluid 2 pH (1-2)
[2019-02-21] MEDS: metroNIDAZOLE 250 MG TABLET 500 MG PO (21:24)
[2019-02-21] MEDS: levoFLOXacin 500 MG/100 ML PIGGYBACK 100 MG IV (21:24)
== END 2019-02-21 22:26 | disposition home or self-care (01) ==
PROVIDERS: Emergency Medicine; Emergency Provider Emergency Medicine; PCP Physician Assistant Medical
DX: K52.9 Noninfective gastroenteritis and colitis, unspecified (principal); R10.9 Unspecified abdominal pain; R11.2 Nausea with vomiting, unspecified
CPT/HCPCS: 36415; 74177; 80053; 81003; 82271; 83690; 83986; 85025; 85610; 85730; 96361; 96365; 96375; 96376; 99284; 99285; C9113; J1200; J1956; J2405; J2765; Q9967